=== PATIENT | female | born 1980 | race American Indian/Alaskan Native ===

== ENCOUNTER 2021-02-06 05:57 | Day surgery (SDC) | payer MEDICAID ==
[~2021-02-06 05:57] MED LIST: Sodium Chloride 0.9% 1,000 ML IV SCH
[2021-02-06] MEDS ORDERED: Propofol 200 MG/20 ML SDV ONE (07:13)
[2021-02-06] MEDS ORDERED: fentaNYL 100 MCG/2 ML SDV ONE (07:13)
[2021-02-06] MEDS ORDERED: Midazolam 1 MG/ML 2 ML SDV ONE (07:14)
[2021-02-06] MEDS: Sodium Chloride 0.9% 1,000 ML IV SCH (07:15)
[2021-02-06 09:26] VITALS: BP 96/71; PULSE 75
--- NOTE | 2021-02-06 13:36 | OR ---
DATE OF PROCEDURE: 02/06/2021 SURGEON: Jose Lee MD PROCEDURE: Colonoscopy. FINDINGS: 1. Poor colon prep. 2. Tortuous sigmoid colon. 3. No other gross abnormalities. COMPLICATIONS: None. RN SURGERY: None. PREOPERATIVE DIAGNOSIS: Family history of colorectal cancer. POSTOPERATIVE DIAGNOSIS: Family history of colorectal cancer. RISKS: Risks, benefits, alternatives, and limitations including, but not limited to, infection, bleeding, perforation, false positives and false negatives. The patient understands these risks, wishes to proceed. PROCEDURE IN DETAIL: The patient was placed in the left lateral decubitus position. Digital rectal exam was performed without abnormality. The scope was introduced and advanced atraumatically to the ileocecal valve. A photo was taken of the appendiceal orifice. Scope was brought back to the ascending, transverse, descending colon, and retroflexed. No evidence of old or new blood. No masses. No polyps. The prep was described as marginal with approximately 85% to 90% of the luminal surface could be seen. No polyps, no colitis. The patient did have a tortuous sigmoid colon, however, at no time was the scope blindly advanced or advanced with any undue pressure. No abnormalities on retroflexion. The patient tolerated procedure well. Jose Lee MD /[id number]
== END 2021-02-06 09:38 | disposition home or self-care (01) ==
LOC: JP.SDS 05:57
PROVIDERS: ATTEND Surgery
DX: Z12.11 Encounter for screening for malignant neoplasm of colon (principal); K63.89 Other specified diseases of intestine; F17.200 Nicotine dependence, unspecified, uncomplicated; E11.9 Type 2 diabetes mellitus without complications; Z80.0 Family history of malignant neoplasm of digestive organs; Z88.6 Allergy status to analgesic agent
CPT/HCPCS: 81025; J2250; J2704; J3010; J7030